=== PATIENT | female | born 1940 | race Caucasian/White ===

== ENCOUNTER 2018-04-28 01:26 | Inpatient (IN) | payer OTHER ==
[~2018-04-28] VITALS: Ht 160 cm; Wt 90.7 kg
[~2018-04-28 01:26] MED LIST: ASPIRIN325 M2 PO; COLACE100 M1 PO; FERROUS SULFAT325 M3 PO; LISINOPRIL5 M1 PO; LOSARTAN POTASS50 M1 PO; MULTIVITAMINS1 EAC9 PO; PERCOCET 5-3251 EACH PO; SIMVASTATIN40 M1 PO; VITAMIN C500 M7 PO; ZOFRAN8 M1 SL
[2018-04-28] MEDS ORDERED: ASPIRIN EC81 M1 PO (08:29)
--- NOTE | 2018-04-28 12:46 | Operative Report ---
Operative/Inv Procedure Report Surgery Date: 04/28/18 Name of Procedure: Left total knee arthroplasty. Pre-Operative Diagnosis: Left knee osteoarthritis Post-Operative Diagnosis: Left knee osteoarthritis. Estimated Blood Loss: 50ml to 100ml Surgeon/Ad Operations Associate: Kim MIX,Alexis Villarreal/kristie jay Anesthesia: spinal Operative/Procedure Note Note: Patient is 77-year-old female brought to the operating room after having an abductor canal block in the holding area. She did receive 600 mg of clindamycin due to a penicillin allergy. She received a gram of tranexamic acid the beginning of the case. Tourniquet was placed around the left upper thigh the [place] was set up for this case. Left leg was first prepped with alcohol and informally prepped and draped. Appropriate timeout was done prior to procedure indicating that the left leg was indeed the operative procedure operative side was signed and verified by the nursing staff and myself. The leg was exsanguinated tourniquet inflated to 300 mmHg we had a midline incision measuring about 2 fingerbreadths above the patella 2 fingerbreadths below the patella. Took this down to the extensor retinaculum created a medial flap and today parapatellar approach on the medial side. At this point time a medial release was carried out around to the posterior medial tibia. Osteophytes were removed menisci were removed ACL PCL excised. Soft tissue at the distal femur was excised for sizing purposes. The knee was then brought into extension and fat pad resected. Appropriate knee retractors placed knee brought up into flexion with the patella everted. Using initial drill we enter the femoral and tibial intramedullary canal sequentially. Went ahead and placed the a distal cutting block on the femur at 10 mm. The distal femoral cut was made. Sizing jig was then placed on the femur and a size 3 was the most appropriate size without notching the femur. Appropriate drill holes made and then the block placed on the femur anterior posterior and chamfer cuts were then made. After completing the femoral cuts went ahead and did the intercondylar notch cut for the posterior stabilized component. After completing this address the tibia intramedullary vanessa placed down the tibia went ahead and reference 9 mm off the least affected lateral tibial plateau. A perpendicular cut to the tibia 3 slope was carried out. After this was completed sizing was then carried out a size 3 tibia was the most appropriate size. The rest of the menisci and rest of soft tissue in the notch was resected. The knee was taken through range of motion with a femoral component tibial baseplate and a poly-in place. The tibia was then marked and then later prepared using the appropriate I-beam punch. After completing these the patella was addressed soft tissue removed from around the patella and sized the patella using a caliper and and cut the appropriate size for her tibial baseplate. The the patella was a size 31. After completing the patella cut appropriate lug holes were drilled medializing the patella. After this thorough irrigation was carried out of all bony surfaces deep injection was carried out into the posterior capsule and the periosteum around the femur and tibia. This contained Marcaine morphine and tramadol. After thorough irrigation and drying the surfaces the components were cemented in place starting with the tibia and the femur and then the patella. All extraneous cement was removed. We waited for the cement to cure took the knee through a range of motion and the most appropriate size for this patient was an 11 tibial polyethylene insert. That was then snapped into place without difficulty. Tourniquet was released any bleeding areas coagulated second injection was done in the quad tendon layer third injection done the subcutaneous tissues. The wound was closed in a layered fashion no drains were used dry sterile dressings applied and she was sent back to the recovery room in stable condition no complications and a dictation by Dr. Alvarez thank you
--- NOTE | 2018-04-28 13:22 | Admission Core Measures ---
Acute Coronary Syndrome (CM) ACS Core Measures Acute Coronary Syndrome Diagnosis No Congestive Heart Failure (NEW) CHF Core Measures Congestive Heart Failure Diagnosis No Cerebrovascular Accident CVA Core Measures CVA/TIA Diagnosis No Venous Thromboembolism VTE Core Hanh (View Protocol) VTE Risk Factors Surgery No Mechanical VTE Prophylaxis d/t N/A MechProphylax Ordered No VTE Pharm Prophylaxis d/t NA PharmProphylax ordered Problem List As ranked by this Provider includes Assessment & Plan 1. Unilateral primary osteoarthritis, left knee HOME MEDS Home Med List Ascorbic Acid (Vitamin C) 500 MG CAPSULE.ER 1 CAP PO DAILY supplement ( Reported) Aspirin (Ecotrin*) 81 MG TABLET.DR 1 TAB PO DAILY heart health (Reported) Ferrous Sulfate 325 MG (65 MG IRON) TABLET 1 TAB PO DAILY supplement ( Reported) Losartan Potassium 50 MG TABLET 1 TAB PO DAILY cardiac (Reported) Multiple Vitamin (Multivitamins) 1 EACH TABLET 1 TAB PO DAILY supplement ( Reported) Simvastatin (Simvastatin*) 40 MG TABLET 1 TAB PO QPM CHOLESTEROL (Reported)
--- NOTE | 2018-04-28 13:25 | PN- Orthopedic ---
Subjective Subjective: POC pt in PACU, no pain. deneis paresthesias. feels tired. has no eaten yet, denies nausea. alvarez in place, not OOB yet deneis CP,SOB and MARVIN Objective Vital Signs and I&Os VSS, afebrile Physical Exam: gen- NAD resp- clear cardiac-RRR abd- soft, NT ext- left knee foreign bandage clean and dry, ice pack on knee. distal sensory and motor function intact. 2+ PT pulse Current Medications: Current Medications Sig/Jed Start time Last Medication Dose Route Stop Time Status Admin Acetaminophen 0 .STK-MED ONE 04/28 0839 DC PO Acetaminophen 650 MG ONCE 04/28 0000 NR PO 04/28 235 Celecoxib 400 MG ONCE 04/28 0000 NR PO 04/28 235 Clindamycin 600 MG ONCE 04/28 0000 NR IV 04/28 235 Dexamethasone 0 .STK-MED ONE 04/28 0839 DC .ROUTE Dexamethasone 10 MG ONCE 04/28 0000 NR IV 04/28 235 Gabapentin 0 .STK-MED ONE 04/28 0840 DC PO Gabapentin 300 MG ONCE 04/28 0000 NR PO 04/28 235 Midazolam HCl 0 .STK-MED ONE 04/28 0909 DC .ROUTE Oxycodone HCl 0 .STK-MED ONE 04/28 0839 DC PO Oxycodone HCl 10 MG ONCE 04/28 0000 NR PO 04/28 235 Scopolamine HBr 0 .STK-MED ONE 04/28 0839 DC TOP Scopolamine HBr 1 PAT ONCE 04/28 0000 NR TOP 04/28 2359 Assessment/Plan Assessment/Plan 77yo F with hx of htn, hld and ckd stage 1 now SP Left TKA POD0. stable pain management pt- wbat with rolling walker dvt ppx- eliquis and alps reg diet IVF reg diet FU am labs regular home meds dressing change POD2 DC planning Core Measures Venous Thromboembolism VTE Risk Factors Surgery No Mechanical VTE Prophylaxis d/t N/A MechProphylax Ordered No VTE Pharm Prophylaxis d/t NA PharmProphylax ordered
--- NOTE | 2018-04-28 13:29 | Patient Discharge Instructions ---
Discharge Instructions General Discharge Information You were seen/treated for: Left knee osteoarthritis You had these procedures: Left total knee arthroplasty Watch for these problems: Fever over 100.4 Drainage from wound Redness and swelling around wound Unable to bear weight on left lower extremity Chest pain or shortness of breath Do not soak the wound: Yes No bath, but you may shower: Yes Other wound care: Daily dry dressing change Diet Continue normal diet: Yes Activity Activity Self Limited: Yes Activity Limited to: Weight bear as tolerated (with rolling walker) Acute Coronary Syndrome Inclusion Criteria At DC or during hospital stay patient has or had the following: ACS DIAGNOSIS No Discharge Core Measures Meds if any: Prescribed or Continued at Discharge Meds if any: NOT Prescribed or Continued at Discharge Congestive Heart Failure Inclusion Criteria At DC or during hospital stay patient has or had the following: CHF DIAGNOSIS No Discharge Core Measures Meds if any: Prescribed or Continued at Discharge Meds if any: NOT Prescribed or Continued at Discharge Cerebrovascular accident Inclusion Criteria At DC or during hospital stay patient has or had the following: CVA/TIA Diagnosis No Discharge Core Measures Meds if any: Prescribed or Continued at Discharge Meds if any: NOT Prescribed or Continued at Discharge Venous thromboembolism Inclusion Criteria VTE Diagnosis No VTE Type NONE VTE Confirmed by (Test) NONE Discharge Core Measures - Per Current guidelines, there needs to be overlap - treatment for the first 5 days of Warfarin therapy. - If discharged on Warfarin prior to 5 days of - overlap therapy, the patient will need to be - assessed for post discharge needs including - *Post discharge parental anticoagulation - *Warfarin and/or parental anticoagulation education - *Follow up date to check INR post discharge At least 5 days overlap therapy as Inpatient No Meds if any: Prescribed or Continued at Discharge Note: Overlap Therapy is Warfarin and Anticoagulant Meds if any: NOT Prescribed or Continued at Discharge
[2018-04-28 14:15] VITALS: BP 128/82
--- NOTE | 2018-04-28 15:54 | PN- Orthopedic ---
Subjective Subjective: POC S/P LET TKA RESTING COMFORTABLY EATING LUNCH NOW DENEIS CP, SOB, NO N+V TURK IN PLACE WITH CLEAR URINE Objective Vital Signs and I&Os Vital Signs Date Time Temp Pulse Resp B/P B/P Pulse O2 O2 Flow FiO2 Mean Ox Delivery Rate 04/28 1415 97.7 75 16 128/82 97 Nasal 2.0L Cannula Physical Exam: CV: RRR LUNGS: CLEAR ABD: SOFT, +BS EXT: ICE PACK IN PLACE DRSG DRY DISTAL CMS INTACT BILAT Assessment/Plan Assessment/Plan ORTHO STABLE PLAN ELIQUIS/ALP FRO DVT PROPHYLAXIS TITRATE PAIN MEDS D/C TURK AT 6AMMAY BE OOB TO CHAIR ADVANCE DIET TOLERATED Core Measures Venous Thromboembolism VTE Risk Factors Surgery No Mechanical VTE Prophylaxis d/t N/A MechProphylax Ordered No VTE Pharm Prophylaxis d/t NA PharmProphylax ordered
[2018-04-28 16:15] VITALS: BP 130/70
[2018-04-28 18:15] VITALS: BP 140/64
[2018-04-28 20:15] VITALS: BP 120/64
[2018-04-29 00:05] VITALS: BP 140/55
[2018-04-29 04:15] VITALS: BP 136/69
--- NOTE | 2018-04-29 07:03 | PN- Student ---
Rosalina Lira 04/29/18 0657: Subjective Subjective: This morning pt is feeling good. Tolerating reg diet. Has passed flatus, no BM yet. No n/v, sob, cp. Pt hasn't gotten oob yet as PT hasn't come to see her yet. Only compliant at this time is some tingling behind the left posterior knee. Pain is well controlled at this time. Objective Objective: Intake & Output 04/29 0800 04/29 0000 04/28 1600 Intake Total 960 1010 Output Total 1250 1850 Balance -290 -840 Intake, IV 600 650 Intake, Oral 360 360 Output, Urine 1250 1850 Patient 200 lb Weight Weight Chair scale Measurement Method Vital Signs Date Time Temp Pulse Resp B/P B/P Pulse O2 O2 Flow FiO2 Mean Ox Delivery Rate 04/29 0415 98.9 87 20 136/69 95 Room Air 04/29 0005 98.8 72 20 140/55 95 Room Air 04/28 2015 97.6 81 20 120/64 95 Room Air 04/28 1815 98.0 84 17 140/64 94 Room Air 04/28 1615 98.0 80 17 130/70 94 Room Air 04/28 1500 Room Air 04/28 1415 97.7 75 16 128/82 97 Nasal 2.0L Cannula Last 24 Hours I&Os 04/29 0804/29 0000 04/28 1600 Intake Total 960 1010 Output Total 1250 1850 Balance -290 -840 Intake, IV 600 650 Intake, Oral 360 360 Output, Urine 1250 1850 Patient 200 lb Weight Weight Chair scale Measurement Method Microbiology Date/Time Procedure - Status Source Growth 04/28 1050 Urine Culture - RES URINE OR Orders Procedure Date/time Status XRY-KNEE, LEFT 04/30 1000 Active CBC WITHOUT DIFFERENTIAL 04/29 06 Active BASIC ELECTROLYTES PLUS BUN&CR 04/29 06 Active Regular Diet 04/28 D Active Weight 04/28 1517 Complete Vital Signs 04/28 151 Complete Teach/Educate 04/28 1517 Active Pain Treatment and Response 04/28 151 Active Nutritional Intake, Monitor 04/28 151 Active Isolation 04/28 151 Active Intake & Output 04/28 1517 Active Patient Care Conference 04/28 1517 Active Activity/Ambulation 04/28 1517 Active PT Evaluate & Treat 04/28 1441 Active Saline Lock 04/28 1441 Active Pathway - chart 04/28 1441 Active Admit to inpatient 04/28 1441 Active Patient Data 04/28 1441 Active Wound Care/Dressing 04/28 1441 Active VTE Mechanical Prophylaxis 04/28 1441 Active Vital Signs 04/28 1441 Active Heat/Cold Therapy 04/28 1441 Active Caceres, Insertion/Removal/Asses 04/28 1441 Active CMS- Neurovascular Checks 04/28 1441 Active Activity/Ambulation 04/28 1441 Active Code Status 04/28 1246 Active TRANSFER ORDERS 04/28 1237 Complete URINE COLLECTION FROM OR 04/28 1112 Active PATHOLOGY SPECIMEN 04/28 1112 Complete Gen: O&Ax3, laying in bed, in no distress Lung: CTA Heart: S1 and S2 normal. RRR Abd: soft, nt/nd, normoactive bs LE: dp pulses 2+ bilaterally, strength 5/5 bilaterally, sensation intact bilaterally, ALPS in place Assessment/Plan Assessment: Pt is a 77 yo female with a PMHx of htn, hyperlipidemia, and ckd POD 1 s/p L TKA. Plan: -Caceres removed, urine output adequate over past 24 hrs -ALPS and eliquis for dvt ppx (Cr pending, will adjust eliquis if needed) -Pain well controlled c/w pain management as ordered -Work with PT today to get pt oob and ambulating -Encourage IS, increase PO intake as pt's has been net negative over past 24 hours, consider finishing bag of IV fluids if po intake remains low -Pt tolerating reg diet, c/w this today -Perioperative abx complete -Change dressing tomorrow Signed MACIE Mack,Ben 04/29/18 0743: Subjective Subjective: AGREE WITH ABOVE OOB IWTH PT TODAY DTV AT [facility] PAIN MEDS HOME D/C PLANNING
--- NOTE | 2018-04-29 07:17 | PN- Orthopedic ---
Subjective Subjective: doing well minimal pain catheter out up with PT today WBAT 0-120 ROM as tolerated Objective Vital Signs and I&Os Vital Signs Date Time Temp Pulse Resp B/P B/P Pulse O2 O2 Flow FiO2 Mean Ox Delivery Rate 04/29 0415 98.9 87 20 136/69 95 Room Air 04/29 0005 98.8 72 20 140/55 95 Room Air 04/28 2015 97.6 81 20 120/64 95 Room Air 04/28 1815 98.0 84 17 140/64 94 Room Air 04/28 1615 98.0 80 17 130/70 94 Room Air 04/28 1500 Room Air 04/28 1415 97.7 75 16 128/82 97 Nasal 2.0L Cannula Intake & Output 04/29 0800 04/29 0000 04/28 1600 04/28 0804/28 0000 04/27 1600 Intake Total 960 1010 Output Total 1250 1850 Balance -290 -840 Intake, IV 600 650 Intake, Oral 360 360 Output, Urine 1250 1850 Patient 200 lb Weight Weight Chair scale Measurement Method Physical Exam: doing well POD#1 s/p left total knee dressing clean neuro intact continue PT ,anticoagulation probable dc tomorrow. Assessment/Plan Assessment/Plan doing well today. UP with PT DC tomorrow Core Measures Venous Thromboembolism VTE Risk Factors Surgery No Mechanical VTE Prophylaxis d/t N/A MechProphylax Ordered No VTE Pharm Prophylaxis d/t NA PharmProphylax ordered Attending MD Review Statement Attending Statement Attending MD Statement: examined this patient
[2018-04-29 08:03] VITALS: BP 124/72
[2018-04-29 08:20] LABS: ABSOLUTE BASOPHIL COUNT 0 /CUMM (0.0-0.2); ABSOLUTE EOSINOPHIL COUNT 0 /CUMM (0.0-0.7); ABSOLUTE GRANULOCYTE CT 8.9 /CUMM (1.4-6.5); ABSOLUTE MONOCYTE COUNT 1.2 /CUMM (0.10-0.60); BASOPHIL % 0 % (0.0-2.0); EOSINOPHIL % 0 % (0-5); GRANULOCYTE % 80.1 % (42.2-75.2); HEMATOCRIT 31.4 % (37-47); MEAN CORPUSCULAR HGB 29.9 PG (27.0-31.0); MEAN CORPUSCULAR HGB CONC 33.7 G/DL (33.0-37.0); MEAN CORPUSCULAR VOLUME 88.7 FL (81.0-99.0); PLATELET COUNT 170 /CUMM (130-400); RBC DISTRIBUTION WIDTH 13.7 % (11.5-14.5); RED BLOOD CELL CT 3.54 /CUMM (4.20-5.40); WHITE BLOOD CELL COUNT 11.1 /CUMM (4.8-10.8)
[2018-04-29 12:32] VITALS: BP 126/72
[2018-04-29 16:00] VITALS: BP 128/70
[2018-04-29 20:55] VITALS: BP 124/70
[2018-04-30 06:18] VITALS: BP 120/78
--- NOTE | 2018-04-30 07:00 | PN- Orthopedic ---
Subjective Subjective: POD#2 S/P LET TKA NO MAJOR ISSUES OVERNIGHT DENIES CP, SOB, NO N+V WITH DIET AMBULATING WELL WITH PT +BM Objective Vital Signs and I&Os Vital Signs Date Time Temp Pulse Resp B/P B/P Pulse O2 O2 Flow FiO2 Mean Ox Delivery Rate 04/30 0618 98.8 86 20 120/78 94 Room Air 04/29 2055 98.3 80 18 124/70 97 Room Air 04/29 1600 98.1 70 18 128/70 96 Room Air 04/29 1232 98.0 70 18 126/72 95 Room Air 04/29 0853 74 124/72 04/29 0803 98.0 74 18 124/72 96 Room Air Intake & Output 04/30 0800 04/30 0000 04/29 1600 04/29 0800 04/29 0000 04/28 1600 Intake Total 240 1040 334 765 8497 Output Total 762 054 4364 1850 Balance 240 540 400 -290 -840 Intake, IV 300 600 650 Intake, Oral 240 1040 500 360 360 Output, Urine 184 679 1335 1850 Patient 200 lb Weight Weight Chair scale Measurement Method Physical Exam: CV: RRR LUNGS: CLEAR ABD: SOFT, +BS EXT: DISTAL CMS INTACT DRSG CHANGED, WOUND C/D/I NO CLAF TENDERNESS BILAT Assessment/Plan Assessment/Plan ORTHO STABLE PLAN HOME D/C LATER TODAY CONT CURRENT MED REGIME Core Measures Venous Thromboembolism VTE Risk Factors Surgery No Mechanical VTE Prophylaxis d/t N/A MechProphylax Ordered No VTE Pharm Prophylaxis d/t NA PharmProphylax ordered
[2018-04-30] MEDS ORDERED: ELIQUIS2.5 M1 PO (07:03)
[2018-04-30] MEDS ORDERED: DOCUSATE SODIU100 M3 PO (07:03)
[2018-04-30] MEDS ORDERED: OXYCODONE HCL5 M1 PO (07:04)
[2018-04-30] MEDS ORDERED: MIRALAX119 GM PO (07:07)
--- NOTE | 2018-04-30 07:16 | Surg Short-stay <48hrs Dis Sum ---
Visit Information Visit Dates Admission Date: 04/28/18 Discharge Date: 04/30/18 Surgical Short Stay DC Summary Admission Diagnosis: Primary osteoarthritis left knee Final Diagnosis: Primary osteoarthritis left knee Procedure(s): Left total knee arthroplasty Summary/Significant Findings: Ms. greene after failed conservative treatment for left knee osteoarthritis was taken to the operating room on 04/28/2018 and underwent left total knee arthroplasty. She tolerated the procedure well she was transferred to the floor. Postop day 1 and 2 she was out of bed with physical therapy and cleared for safety for home discharge. At the time of discharge there were no medical/ surgical issues to be addressed. Follow-up will be with Dr. Alvarez in 2 weeks for staple removal Condition at Discharge: Stable Discharge Disposition: home health services Discharge instructions provided to patient/family: Yes Post discharge follow-up plan: Eliquis 2.5 mg twice daily for DVT prophylaxis Keep left knee wound clean and dry with dry sterile dressing daily Call Dr. Alvarez for temperature greater than 101.5, increased wound drainage/ redness, increased left knee pain with ambulation
[2018-04-30 08:45] VITALS: BP 110/70
--- NOTE | 2018-04-30 10:19 | RADIOLOGY REPORT ---
EXAMINATION: XR KNEE, LEFT CLINICAL INFORMATION: Status post TKA. COMPARISON: None TECHNIQUE: Four views of the left knee. FINDINGS: Status post left total knee arthroplasty with patellar resurfacing. The tibial and femoral components are cemented. Skin krish are seen anteriorly. There is gas within and surrounding the knee joint. IMPRESSION: Expected postoperative appearance of the left knee.
== END 2018-04-30 12:41 | disposition home health service (06) | DRG 470 ==
LOC: SDA 01:26 → ENRESERV 13:10 → ENTRNSPT 13:46 → EDTRNSPTSTS 13:57 → EDTRNSPT 13:57 → 2NB 14:04 → CMPTRNSPT 14:22 → ENPENDDIS 04-30 07:23 → ENTRNSPT 04-30 12:35 → EDTRNSPTSTS 04-30 12:37 → 2NB 04-30 12:41 → CMPTRNSPT 04-30 12:57
PROVIDERS: Physician Assistant Surgical
PROC: 0SRD0J9 Replacement of Left Knee Joint with Synthetic Substitute, Cemented, Open Approach (ICD-10-PCS; principal; 2018-04-30)
PROC: 3E0T3BZ Introduction of Anesthetic Agent into Peripheral Nerves and Plexi, Percutaneous Approach (ICD-10-PCS; principal; 2018-04-30)
DX: M17.12 Unilateral primary osteoarthritis, left knee (principal); E78.5 Hyperlipidemia, unspecified; I12.9 Hypertensive chronic kidney disease with stage 1 through stage 4 chronic kidney disease, or unspecified chronic kidney disease; N18.3 Chronic kidney disease, stage 3 (moderate)
CPT/HCPCS: 2NBP; 36592; 73560-LT; 82436; 87086; 88305; 97110-GO; 97116-GO; 97161-GP; 97530-GO; C1713; C9290; J0131; J1100; J1885; J2405